=== PATIENT | male | born 1945 | race Caucasian/White ===

== ENCOUNTER 2023-08-08 07:27 | Outpatient (REF) | payer MEDICARE, SELFPAY ==
--- NOTE | ~2023-08-08 | XR_ITS ---
EXAMINATION: XR HIP, RIGHT CLINICAL INFORMATION: Pain COMPARISON: None available. TECHNIQUE: Two views of the right hip. FINDINGS: Visualized portion of the proximal right femur demonstrate no fracture. Femoral head is well-seated within the acetabulum. There is moderate to severe narrowing of the right femoral acetabular joint space. There is sclerotic changes of the acetabulum. Prominent osteophytes are noted along the superolateral acetabular margin in the femoral head/neck junction. Incompletely visualized left hip arthroplasty grossly unremarkable. Numerous surgical clips project over the pelvis. XR/XR hip RT min 2V IMPRESSION: Moderate to severe degenerative changes of the right hip without fracture or dislocation.
== END 2023-08-08 07:28 | disposition home or self-care (01) ==
LOC: HO.HOSX 07:27
PROVIDERS: Visit Provider Orthopaedic Surgery
DX: M16.11 Unilateral primary osteoarthritis, right hip (principal); Z96.642 Presence of left artificial hip joint; Z79.01 Long term (current) use of anticoagulants; Z79.899 Other long term (current) drug therapy
CPT/HCPCS: 73502; 99212

== ENCOUNTER 2023-08-08 08:37 | Outpatient (AMB) | payer MEDICARE, SELFPAY ==
--- NOTE | 2023-08-08 08:40 | A.OFFVIS_ITS ---
Intake Vital Signs 08/08/23 08:52 Height 5 ft 8 in Weight 200 lb BMI 30.4 Intake Visit Reasons: [employer]-Right hip-Discuss surgery. Intake Note: Robert is a 77 year old male who presents as an new patient with Right hip. The patient did undergo left total hip replacement surgery several years ago. Denies any pain in his left hip. He describes his right hip pain as sharp and severe in nature. Right hip pain has gotten worse few years in spite of continued non operative treatments. He has done physical therapy which aggravated his pain. Has taken Tylenol which gives him minimal relief. He has not able to take anti-inflammatory medicines because he is on Xarelto. The patient has difficulty walking even short distances because of his pain. At this point his right hip pain is interfering with his activities of daily living and his ability to sleep well through the night. Allergies indomethacin [From Indocin] Allergy (Mild, Verified 08/08/23 08:53) Headache Medication List - Last Reconciled 08/08/23 by Charles García MD chlorthalidone mg PO latanoprost 0.005% drps ophthalmic (eye) lisinopril mg PO rivaroxaban (Xarelto) mg PO simvastatin mg PO PFSH Surgical History (Updated 08/08/23 @ 09:01 by Yolanda Rodriguez CMA) History of prostate surgery (Unknown) History of hip surgery (Unknown) Social History (Updated 08/08/23 @ 09:01 by Yolanda Rodriguez CMA) Patient Tobacco Use Status: Never used Tobacco Physical Exam Vital Signs: BMI result Body Mass Index 30.4 Const Other: Well-nourished well-developed very friendly male awake alert and oriented x3 in no acute distress Extrem Other: Bilateral lower extremity examination shows good capillary refill, no skin lesions noted, normal sensation light touch Right hip examination shows decreased range of motion when compared to his left hip, pain with range of motion, no tenderness over his bursa Results Reviewed Results Reviewed: X-rays of the patient's right hip show severe joint space narrowing with grade 4 [id number] arthritis, subchondral sclerosis, osteophyte formation, no acute bony abnormalities Assessment & Plan Assessment & Plan (1) Arthritis of right hip: Code(s): M16.11 - Unilateral primary osteoarthritis, right hip Plan Mr. Jones presents with progressively worsening right hip pain due to end- stage degenerative joint disease. I had a lengthy discussion with the patient regarding the treatment options. At this point he has failed continued non operative treatments. The risks and benefits of right total hip replacement surgery were discussed at length with the patient. The patient is interested in proceeding with surgery. He will be scheduled for a next available date. I will see him back 1-2 weeks prior to his surgery to answer any final questions that he might have. Feel free to call me at any time should questions regarding his orthopedic management arise. I spent 22 minutes in reviewing the patient's records and imaging studies, seeing the patient and documenting in the medical record. Orders: Orders XR hip RT min 2V Today M25.551 - Pain in right hip Coding Level of Care Code Est Pt Level 2 (99073) Diagnoses Arthritis of right hip M16.11
[2023-08-08 08:52] VITALS: BMI 30.4
== END 2023-08-08 09:16 | disposition home or self-care (01) ==
PROVIDERS: PCP Internal Medicine; Visit Provider Orthopaedic Surgery
DX: M16.11 Unilateral primary osteoarthritis, right hip (principal); Z96.642 Presence of left artificial hip joint
CPT/HCPCS: 99213

== ENCOUNTER 2024-03-19 09:21 | Outpatient (REF) | payer MEDICARE, SELFPAY ==
--- NOTE | ~2024-03-19 | CT_ITS ---
EXAMINATION: CT ANGIOGRAM OF THE CHEST WITHOUT AND WITH CONTRAST CLINICAL INFORMATION: Aortic aneurysm COMPARISON: None. TECHNIQUE: Multidetector volumetric CT imaging of the chest was performed before and after the administration of 65 mL of Omnipaque 350 intravenous contrast without immediate adverse reactions. 3D POSTPROCESSING: Multiple 3-D angiographic images were processed from the initial data set by the echo vascular technologist at the modality workstation under concurrent physician supervision. DOSE LOWERING TECHNIQUES: This CT examination was performed using dose optimization techniques as appropriate, variously including the following: - Automated exposure control - Adjustment of mA and/or kV according to patient size (this includes techniques or standardized protocols for targeted exams where dose is matched to indication/reason for exam; i.e. extremities or head) - Use of iterative reconstruction technique DLP: 473 mGy-cm. FINDINGS: VASCULAR: ASCENDING AORTA: There is mild fusiform dilation of the ascending thoracic aorta. No evidence of leak or dissection. The mid segment measures 4.5 x 4.2 cm. AORTIC ARCH: The mid aortic arch 3.0 cm. 2-vessel arch anatomy. The great vessels are patent. No evidence of dissection. DESCENDING AORTA: Normal in caliber and patent. No evidence of aneurysm or dissection. Scattered calcified plaque. The mid segment measures 2.7 x 2.7 cm. ABDOMINAL AORTA: Visualized proximal abdominal aorta is normal in caliber. PULMONARY ARTERIES: Examination not tailored to the pulmonary arteries however there is no evidence of acute pulmonary embolus. NONVASCULAR: LUNGS: The lungs are clear with no evidence of inflammation or nodules. MEDIASTINUM: The mediastinum is normal. Heart is normal in size. Pericardium is normal. No mediastinal or hilar lymphadenopathy CORONARY ARTERY CALCIFICATION: Moderate PLEURA: There is no pleural effusion. No pleural mass or thickening. ABDOMINAL VISCERA: Unremarkable OSSEOUS STRUCTURES: No acute process. 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 There is a hemangioma within the T12 vertebral body. CT/CT angio chest aorta IMPRESSION: Mild fusiform dilation of the ascending thoracic aorta measuring 4.5 cm. No evidence of leak or dissection. Electronically signed by: Simone Sommers MD 05/12/2024 11:43 AM [facility]
[2024-03-19] MEDS: iohexoL 350 MG/ML 100 ML INFUS..BTL 70 ML IV (10:49)
[2024-03-20 06:24] LABS: Creatinine POC 0.9 mg/dL (0.5-1.4); GFR POC > 60
== END 2024-03-19 09:22 | disposition home or self-care (01) ==
LOC: HO.CT 09:21
PROVIDERS: PCP Internal Medicine; Visit Provider Internal Medicine
DX: I71.21 Aneurysm of the ascending aorta, without rupture (principal)
CPT/HCPCS: 71275; 82565; Q9967